=== PATIENT | female | born 1990 | race Asian ===

== ENCOUNTER → 2016-07-29 | Outpatient (CLI) | payer OTHER ==
[~2016-07-29] MED LIST: IBUP-1773 PO; PNV1TABL67 PO
--- NOTE | 2016-07-29 17:11 | Diagnostic Imaging Report ---
Pelvic OB ultrasound. INDICATION: Abnormal heart sounds. FINDINGS: The heart rate is 123 beats per minutes. The placenta is anterior. No placenta previa. The amniotic fluid index is 6.2 cm. IMPRESSION: Live intrauterine . Amniotic fluid index is near the lower limits of normal at 6.2 cm. Dictated by: Dictated on workstation # [id number]
== END ==
LOC: RAD 11:57
PROVIDERS: ATTEND Family Medicine
DX: O76 Abnormality in fetal heart rate and rhythm complicating labor and delivery (principal); Z3A.00 Weeks of gestation of pregnancy not specified
CPT/HCPCS: 76815

== ENCOUNTER 2016-08-13 08:58 | Outpatient (CLI) | payer OTHER ==
[~2016-08-13] VITALS: Ht 154.9 cm; Wt 83.2 kg
[2016-08-13 09:05] VITALS: BP 114/65
--- NOTE | 2016-08-13 11:23 | Clinic Account Progress/Dx ---
Clinic Account Progress/Dx DIAGNOSIS: Diagnosis 40 weeks gestation Third trimester bleeding GABE MARTIN MD Aug 13, 2016 11:23 am
== END 2016-08-13 10:00 | disposition home or self-care (01) ==
LOC: WSo 08:58 → LDRP 08:58 → WSo 10:00
PROVIDERS: ATTEND Family Medicine
DX: O46.93 Antepartum hemorrhage, unspecified, third trimester (principal); Z3A.40 40 weeks gestation of pregnancy
CPT/HCPCS: 99213

== ENCOUNTER 2016-08-18 18:07 | Inpatient (IN) | payer OTHER ==
[~2016-08-18] VITALS: Ht 154.9 cm; Wt 84.4 kg
[2016-08-18 18:18] VITALS: BP 124/69
[2016-08-18] MEDS ORDERED: D5 LR IV SOLUTION 1,000 ML IV ONE (19:02)
--- NOTE | 2016-08-18 19:02 | History & Physical-OB ---
OB - Chief Complaint & HPI Date Date of Admission: Date of Admission: Aug 18, 2016 at 6:07 pm Chief Complaint/History OB-Reason for Admission/Chief: Induction of Labor Hx : 1 Hx Para: 0 Expected Date of Delivery: Aug 13, 2016 Gestational Age in Weeks: 40 Gestational Age in Days: 5 Indication for induction: post dates History of Labs A+, antibody neg, RI, HIV/Hep B/RPR NR, GC/chlamydia neg. Tetra low risk. GBS neg Allergies and Home Medications Allergies Coded Allergies: No Known Drug Allergies (Unverified , 08/13/16) Home Medications No Active Prescriptions or Reported Meds OB - History Hx of Present Care: Yes Ultrasounds: Normal mid trimester US Obstetrical Complications: Other (proteinuria with normal 24 hour urine protein ) Obstetrical History Hx : 1 Hx Para: 0 Patient Past Medical History PMHx: None Social History/Family History HIV/AIDS: No Recent Infectious Disease Expo: No Sexually Transmitted Disease: No Alcohol Use: Denies Use Recreational Drug Use: No Smoking Cessation: Never smoker Immunizations Tetanus Booster (TDap): Less than 5yrs Rubella: immune RPR/VDRL: Negative GBS Status: Negative HBsAG: Negative OB - Admission Exam Physical Exam HEENT: NCAT Abdomen: Non tender Extremities: Normal Cervical Dilatation: 1cm Effacement: 0% Station: -3 Membranes: Intact Heart Rate: 120's Accelerations: Accelerations Present Flatbed Owner Operator Variability: Average (6-25) Contractions on Admission: 6-10 Minutes Apart Intensity: Mild Robles Scoring Tool (Modified) Dilation (cm): 1-2cm (1) Effacement (%): 0-30% (0) Descent/Station: -3 (0) Cervix Consistency: Soft (2) Cervix Position: Anterior (2) Subtract 1 point for: Postdate (-1), Nulliparity (-1) Robles Score: 3 OB - Assessment/Plan/Diagnosis Assessment Assessment: induction of labor, other (post dates) Plan Plan: Induction Induction Method: per Misoprostol Protocol GABE MARTIN MD Aug 18, 2016 7:02 pm
[2016-08-18] MEDS ORDERED: MINERAL OIL CONCENTRATE 99.9% 15 ML UDC TOP PRN (19:15)
[2016-08-18] MEDS: D5 LR IV SOLUTION 1,000 ML IV SCH (19:15)
[2016-08-18 19:17] LABS: BASOPHILS % (AUTO) 0 % (0-10); EOSINOPHILS # (AUTO) 0.1 10^3/uL (0.0-0.3); EOSINOPHILS % (AUTO) 1 % (0-10); LYMPHOCYTES # (AUTO) 1.7 X 10^3 (1.0-4.0); LYMPHOCYTES % (AUTO) 17 % (12-44); MEAN CORPUSCULAR HEMOGLOBIN 28 PG (25-34); MEAN CORPUSCULAR HGB CONC 33 G/DL (32-36); MEAN CORPUSCULAR VOLUME 84 FL (80-99); MEAN PLATELET VOLUME 8.8 FL (7.4-10.4); MONOCYTES # (AUTO) 0.9 X 10^3 (0.0-1.0); MONOCYTES % (AUTO) 9 % (0-12); NEUTROPHILS # (AUTO) 7.3 X 10^3 (1.8-7.8); NEUTROPHILS % (AUTO) 73 % (42-75); PLATELET COUNT 286 10^3/uL (130-400); RED BLOOD COUNT 4.19 10^6/uL (4.35-5.85); RED CELL DISTRIBUTION WIDTH 16.1 % (10.0-14.5)
[2016-08-18] MEDS: MISOPROSTOL 100 MCG (CYTOTEC) TAB PV SCH ×2 (19:54→23:57)
[2016-08-18 20:01] VITALS: BP 115/73
[2016-08-18 21:00] VITALS: BP 118/79
[2016-08-18 22:00] VITALS: BP 110/55
[2016-08-18] MEDS: CATHETER FLUSH 10 ML SYR IV SCH (22:37)
[2016-08-18 23:00] VITALS: BP 110/55
[2016-08-19] VITALS (67 sets, daily range): BP systolic 92–220; BP diastolic 51–94
[2016-08-19] MEDS: D5 LR IV SOLUTION 1,000 ML IV SCH ×3 (03:06→18:31)
[2016-08-19] MEDS: MISOPROSTOL 100 MCG (CYTOTEC) TAB PV SCH ×2 (04:04→09:46)
[2016-08-19] MEDS: CATHETER FLUSH 10 ML SYR IV SCH (11:09)
[2016-08-19] MEDS ORDERED: OXYTOCIN/NORMAL SALINE 500 ML IV SCH (12:46)
--- NOTE | 2016-08-19 12:54 | OB Labor & Delivery Record ---
L&D History Date of Service Date of Service: Aug 19, 2016 History Expected Date of Delivery: Aug 13, 2016 Gestational Age in Weeks: 40 Hx : 1 Hx Para: 0 Complications Events: Routine care Operative Indications (Cesarea: N/A-Vaginal Delivery Intrapartal Events: Extnded Bradycardia (at 0157 baseline decreased to about 100, remained with good variability and accels with pushing, at 0209 large acel to 180, then back to 100 at 0212, discussed vacuum assisted delivery with parents, but delivered next contraction) L&D Stage1 Stage One Onset of Labor - Date: Aug 19, 2016 Onset of Labor - Time: 20:00 Duration - Stage I: 29 hours Monitors and Tracing Monitor Mode: Internal Heart Rate: 125 Station: -3 Presentation: Vertex Vital Signs VS - Last 72 Hours, by Label 08/18/16 08/18/16 08/18/16 08/18/16 18:18 20:01 21:00 22:00 Temp 97.8 98.2 Pulse 96 88 75 78 Resp 18 18 18 18 B/P (MAP) 124/69 115/73 118/79 110/55 O2 Delivery Room Air Room Air Room Air Room Air 08/18/16 08/19/16 08/19/16 08/19/16 23:00 00:00 01:00 02:10 Temp 97.8 97.0 97.0 97.4 Pulse 88 79 73 83 Resp 18 18 18 18 B/P (MAP) 110/55 92/51 111/59 120/72 O2 Delivery Room Air Room Air Room Air Room Air 08/19/16 08/19/16 08/19/16 08/19/16 03:00 04:00 05:00 06:00 Temp 97.0 97.6 97.1 97.0 Pulse 85 77 68 68 Resp 18 18 18 18 B/P (MAP) 130/73 99/58 99/58 102/55 O2 Delivery Room Air Room Air Room Air Room Air 08/19/16 08/19/16 08/19/16 08/19/16 08:00 09:30 10:00 10:30 Temp 96.2 Pulse 77 77 72 Resp 20 20 20 B/P (MAP) 116/61 101/66 111/69 O2 Delivery Room Air Room Air Room Air Room Air 08/19/16 11:00 Pulse 68 Resp 20 B/P (MAP) 114/61 O2 Delivery Room Air Rupture of Membranes Spontaneous Ruture of Membrane: Yes Amniotic Membrane Rupture Time: 17:32 Amniotic Membrane Fluid Desc.: Meconium Stained Vaginal Bleeding Description: Normal Show Progress/Notes 08/19 at 1252: feeling pain with contractions. SVE 330/-3. FHTs 120s, moderate variability, accels present. Ctx 2-08/09. Discussed messer bulb for further cervical ripening with patient and versus starting pitocin due to too many contractions to safely continue cytotec. She is very uncomfortable with cervical checks and would prefer trial of pitocin. Will re-evaluate possible need for messer at next check. Start pitocin per protocol. L&D Stage2 Stage Two Stage II Date: Aug 20, 2016 Stage II Time: 01:20 Stage II Duration: 1 hour Monitors and Tracing Monitor Mode: Internal Heart Rate: 110 Monitor Decelerations: Variable Divisional Storekeeper Variability: Average (6-10) Short Term Variability: Present Position: Right Occiput Anterior Presentation: Vertex Cord Descript/Complications Cord Vessel Description: 3 Vessels Complications Nuchal x 1, easily reduced Delivery Type Delivery Method: Spontaneous Vaginal Anterior Shoulder: Left Episiotomy/Perineal Laceration Laceraction(s)/Extensions: Yes Episiotomy Description: Perineal Extension/lac, Vaginal Extension/lac ( bilateral labia minora), 2nd degree Degree (describe repair) Second degree perineal laceration repaired in the usual fashion with 3-0 rapide. Right labia minora tear repaired with 2 simple interrupted stitches. Left labia minora small hemostatic laceration not requiring repair. Condition of Infant Delivery Delivery Date & Time: 08/20/2016 at 0216 1 minute Comment: 9 5 minute Comment: 9 Condition of Condition of : Living Exam: No Observed Abnormalities Resuscitation Resuscitation: N/A - Spontaneous Resp L&D Stage3 Stage Three Stage III Date: Aug 20, 2016 Stage III Time: 02:16 Stage III Duration: 15 min Pictocin Pitocin Administration Comment: Pitocin 30 units/500 cc bolus after delivery of placenta. Placenta Delivery Placenta Delivery: Spontaneous Delivery Summary Summary Total Labor Time 30 hours Vaginal blood loss >500ml: No 250 ml Attending at delivery: Gabe Marmolejo MD Condition of Delivery Post Hemorrhage: No Condition of Mother Stable Condition of Infant (s) Stable, transitioning in room with mother GABE MARMOLEJO MD Aug 19, 2016 12:54 pm
[2016-08-19] MEDS: fentaNYL INJECTION 100 MCG/2 ML AMP IVP PRN ×3 (19:01→21:15)
[2016-08-19] MEDS ORDERED: LACTATED RINGERS 1,000 ML IV ONE (22:18)
[2016-08-19] MEDS ORDERED: SUFENTA 0.6MCG/ML BUPIVA 0.125 100 ML ONE (22:22)
[2016-08-20] VITALS (24 sets, daily range): BP systolic 62–119; BP diastolic 49–82
[2016-08-20] MEDS ORDERED: LIDOCAINE/EPI 1%-1:200,000 (XYLOCAINE) 30 ML VIAL ONE (01:26)
[2016-08-20] MEDS ORDERED: OXYTOCIN/NORMAL SALINE 500 ML IV SCH (06:51)
[2016-08-20] MEDS ORDERED: WITCH HAZEL(TUCKS) 40 EA JAR TOP PRN (07:00)
[2016-08-20] MEDS ORDERED: BENZOCAINE/MENTHOL (DERMOPLAST) 56 ML CAN TP PRN (07:00)
[2016-08-20] MEDS: IBUPROFEN 600 MG (MOTRIN) TAB PO SCH ×3 (08:10→23:12)
[2016-08-20] MEDS: PRENATAL VITAMIN 1 EA TAB PO SCH (08:10)
[2016-08-20] MEDS ORDERED: CATHETER FLUSH 10 ML SYR IV SCH (14:00)
--- NOTE | 2016-08-20 14:44 | Anesthesia-Regional Post-Op ---
Regional Patient Condition Mental Status: Alert, Oriented x3 Circulation: Same as Pre-Op Headache: Absent Sensation: Full Recovery Motor Block: Absent Post Op Complications Complications None Follow Up Care/Instructions Patient Instructions None needed. Anesthesia/Patient Condition Patient is doing well, no complaints, stable vital signs, no apparent adverse anesthesia problems. No complications reported per nursing. BRYCE GARCIAS CRNA Aug 20, 2016 14:44
[2016-08-21] VITALS: BP 98/61
--- NOTE | 2016-08-21 01:56 | Progress Note (SOAP) ---
Subjective Subjective/Events-last exam No concerns. Lochia decreased. . Objective Exam Last Set of Vital Signs Vital Signs Date Time Temp Pulse Resp B/P (MAP) Pulse Ox O2 Delivery O2 Flow Rate FiO2 08/21/16 00:00 97.1 89 18 98/61 97 Room Air Capillary Refill : I&O Intake and Output 08/20/16 23:59 Intake Total 1000 ml Output Total 0 ml Balance 1000 ml Intake IV Total 1000 ml Output Post Void Residual 0 ml General: Alert, Oriented X3, Cooperative Psych/Mental Status: Mood NL Assessment/Plan Assessment/Plan Plan 1. PPD#1 s/p 2. 2nd degree laceration repair -Anticipate DC home Tuesday Diagnosis/Problems: Clinical Quality Measures DVT/VTE Risk/Contraindication: Risk Factor Score Per Nursin RFS Level Per Nursing on Admit: 1=Low/No VTE PPX DANIEL HERMOSILLO DO Aug 21, 2016 01:56
[2016-08-21] MEDS: IBUPROFEN 600 MG (MOTRIN) TAB PO SCH ×5 (04:33→22:17)
[2016-08-21 04:37] VITALS: BP 96/63
[2016-08-21 05:55] LABS: BASOPHILS % (AUTO) 0 % (0-10); EOSINOPHILS # (AUTO) 0.1 10^3/uL (0.0-0.3); EOSINOPHILS % (AUTO) 1 % (0-10); LYMPHOCYTES # (AUTO) 2.4 X 10^3 (1.0-4.0); LYMPHOCYTES % (AUTO) 19 % (12-44); MEAN CORPUSCULAR HEMOGLOBIN 28 PG (25-34); MEAN CORPUSCULAR HGB CONC 32 G/DL (32-36); MEAN CORPUSCULAR VOLUME 86 FL (80-99); MEAN PLATELET VOLUME 8.3 FL (7.4-10.4); MONOCYTES # (AUTO) 0.9 X 10^3 (0.0-1.0); MONOCYTES % (AUTO) 7 % (0-12); NEUTROPHILS # (AUTO) 9.6 X 10^3 (1.8-7.8); NEUTROPHILS % (AUTO) 74 % (42-75); PLATELET COUNT 193 10^3/uL (130-400); RED BLOOD COUNT 3.15 10^6/uL (4.35-5.85); RED CELL DISTRIBUTION WIDTH 16.1 % (10.0-14.5)
[2016-08-21 08:30] VITALS: BP 76/46
[2016-08-21] MEDS: PRENATAL VITAMIN 1 EA TAB PO SCH (08:58)
[2016-08-21 11:35] VITALS: BP 106/66
[2016-08-21 16:51] VITALS: BP 109/65
[2016-08-21 22:17] VITALS: BP 106/72
[2016-08-22 05:15] VITALS: BP 91/51
[2016-08-22 08:15] VITALS: BP 100/60
[2016-08-22] MEDS: PRENATAL VITAMIN 1 EA TAB PO SCH (09:49)
[2016-08-22] MEDS ORDERED: IBUP-1773 PO (11:15)
[2016-08-22] MEDS ORDERED: PNV1TABL67 PO (11:15)
--- NOTE | 2016-08-22 11:16 | Discharge Instructions ---
Discharge Inst-Women's Serv Depart Medications New, Converted or Re-Newed RX: Call to Patients Pharmacy (or use over the counter) New Medications: Ibuprofen (Ibuprofen) 600 Mg Tablet 600 MG PO Q6H PRN for CRAMPS, #90 TAB Pnv with Ca,No.72/Iron/FA (Pnv Plus Multivit Tab) 1 Each Tablet 1 EA PO DAILY@0700, #30 TAB continue while Follow Up/Instructions Goal/Follow Up: Follow-up with Dr. Marmolejo in 6 weeks. Activity Activity: Activity as Tolerated Nothing Inside Vagina: No Douching, No [place], No Tampons Diet Discharge Diet: No Restrictions Symptoms to Report to : Bleeding Excessive, Pain Increased, Fever Over 101 Degrees F, Vaginal Bleeding Increase, Vaginal Discharge Foul, Shortness of Breath For Any Problems or Questions: Contact Your Physician DANIEL HERMOSILLO DO Aug 22, 2016 11:13
--- NOTE | 2016-08-22 11:19 | Discharge Summary ---
Diagnosis/Chief Complaint Date of Admission Aug 18, 2016 at 18:07 Date of Discharge Aug 22, 2016 Admission Diagnosis Admission Diagnosis 1. 25 yo G1 at 40w6 - IOL for post-dates Discharge Diagnosis 1. 25 yo G1 at 40w6 - IOL for post-dates; 08/20/16 2. 2nd degree laceration repair Discharge Summary-OBS Procedures None. Discharge Physical Examination Allergies: Coded Allergies: No Known Drug Allergies (Unverified , 08/13/16) Vitals & I&Os Vital Sign - Last 12Hours Date Time Temp Pulse Resp B/P (MAP) Pulse Ox O2 Delivery O2 Flow Rate FiO2 08/22/16 08:15 98.1 82 20 100/60 08/22/16 05:15 98 Room Air 08/19/16 23:09 15.00 General Appearance: Alert, Oriented X3, Cooperative Psych/Mental Status: Mood NL Hospital Course Routine post- course Labs Laboratory Tests 08/21/16 05:40: White Blood Count 13.0H, Red Blood Count 3.15L, Hemoglobin 8.7#L, Hematocrit 27L , Mean Corpuscular Volume 86, Mean Corpuscular Hemoglobin 28, Mean Corpuscular Hemoglobin Concent 32, Red Cell Distribution Width 16.1H, Platelet Count 193, Mean Platelet Volume 8.3, Neutrophils (%) (Auto) 74, Lymphocytes (%) (Auto) 19, Monocytes (%) (Auto) 7, Eosinophils (%) (Auto) 1, Basophils (%) (Auto) 0, Neutrophils # (Auto) 9.6H, Lymphocytes # (Auto) 2.4, Monocytes # (Auto) 0.9, Eosinophils # (Auto) 0.1, Basophils # (Auto) 0.0 Discharge Instructions to patient/family Please see electonic discharge instructions given to patient. Discharge Medications Reviewed and agree with Discharge Medication list on patient's Discharge Instruction sheet Clinical Quality Measures DVT/VTE Risk/Contraindication: Risk Factor Score Per Nursin RFS Level Per Nursing on Admit: 1=Low/No VTE PPX DANIEL HERMOSILLO DO Aug 22, 2016 11:19
[2016-08-22] MEDS: IBUPROFEN 600 MG (MOTRIN) TAB PO SCH (11:58)
== END 2016-08-22 12:45 | disposition home or self-care (01) | DRG 775 ==
LOC: LDRP 18:07
PROVIDERS: ADMIT Family Medicine; ATTEND Family Medicine
PROC: 3E0P7GC Introduction of Other Therapeutic Substance into Female Reproductive, Via Natural or Artificial Opening (ICD-10-PCS; 2016-08-18)
PROC: 0KQM0ZZ Repair Perineum Muscle, Open Approach (ICD-10-PCS; principal; 2016-08-19)
PROC: 10E0XZZ Delivery of Products of Conception, External Approach (ICD-10-PCS; 2016-08-19)
DX: O48.0 Post-term pregnancy (principal); O70.1 Second degree perineal laceration during delivery; Z3A.40 40 weeks gestation of pregnancy; Z37.0 Single live birth
CPT/HCPCS: 36415; 85025; 86850; 86900; 86901